=== PATIENT | male | born 1970 | race Caucasian/White ===

== ENCOUNTER → 2020-09-16 | Outpatient (CLI) | payer OTHER ==
--- NOTE | 2020-09-17 07:50 | CT ---
EXAMINATION TYPE: CT angio head neck DATE OF EXAM: 09/16/2020 HISTORY: Dizziness and giddiness COMPARISON: None CT DLP: 719 mGycm. Automated Exposure Control for Dose Reduction was Utilized. TECHNIQUE: CTA scan of the neck is performed without and with IV Contrast, patient injected with 65 mL of Isovue 370, axial images are obtained, coronal and sagittal reformatted images are reviewed. Th ree-D reconstructed images are created on an independent workstation and reviewed. Source images are reviewed. FINDINGS: Carotid/Vascular Structures: There is a three-vessel arch. Common carotid arteries bifurcate normally into internal and external carotid arteries. No significant stenosis is evident. Internal carotid ar teries have a tortuous course near the skull base. No significant stenosis is evident. Vertebral kirill lola were not included. Cervical of [place]: Vertebral basilar system appears normal. Posterior cerebral vasculature is unrema rkable. Internal carotid arteries bifurcate normally into A1 and M1 segments. A2 segments are normal. The anterior communicating artery is identified. Posterior communicating arteries are not identified . IMPRESSION: 1. No flow-limiting stenosis bilateral carotid bifurcations. 2. Normal yocha dehe of [place]
== END | disposition home or self-care (01) ==
LOC: RADCTMAIN 07:47
PROVIDERS: ATTEND Family Medicine
DX: R42 Dizziness and giddiness (principal)
CPT/HCPCS: 70496; 70498; Q9967

== ENCOUNTER → 2022-07-12 | Outpatient (CLI) | payer OTHER ==
--- NOTE | 2022-07-12 14:53 | XR ---
EXAMINATION TYPE: XR shoulder complete RT DATE OF EXAM: 07/12/2022 COMPARISON: NONE HISTORY: Pain TECHNIQUE: Shoulder examined in 3 projections. FINDINGS: The humeral head articulates with the glenoid. The acromio-clavicular junction is normal. No acute fractures or dislocations are evident. A follow up study can be performed 7-10 days from acute trauma for continued pain. MRI can be perfor med if soft tissue evaluation would be of benefit. IMPRESSION: 1. No acute osseous shoulder abnormality.
== END | disposition home or self-care (01) ==
LOC: RADXRMAIN 14:10
PROVIDERS: ATTEND Family Medicine
DX: M24.811 Other specific joint derangements of right shoulder, not elsewhere classified (principal)

== ENCOUNTER → 2022-11-15 | Outpatient (CLI) | payer OTHER ==
--- NOTE | 2022-11-15 15:53 | XR ---
EXAMINATION TYPE: XR chest 2V DATE OF EXAM: 11/15/2022 3:48 PM COMPARISON: None TECHNIQUE: XR chest 2V Frontal and lateral views of the chest. CLINICAL INDICATION:Male, 51 years old with history of J44.9; FINDINGS: Lungs/Pleura: There is no evidence of pleural effusion, focal consolidation, or pneumothorax. Pulmonary vascularity: Unremarkable. Heart/mediastinum: Cardiomediastinal silhouette is unremarkable. Musculoskeletal: No acute osseous pathology. Partial visualization of cervical fusion however. IMPRESSION: No acute cardiopulmonary disease/process.
[2022-11-15 21:13] LABS: ALT 53 U/L (10-49); AST 39 U/L (14-35); Albumin 4.6 d/dL (3.8-4.9); Albumin/Globulin Ratio 1.53 Ratio (1.60-3.17); Alkaline Phosphatase 65 U/L (41-126); BUN/Creat Ratio 20.12 Ratio (12.00-20.00); Blood Urea Nitrogen 16.1 mg/dL (9.0-27.0); Calcium 9.8 mg/dL (8.7-10.3); Carbon Dioxide 24.1 mmol/L (21.6-31.8); Chloride 100 mmol/L (96-109); Glucose 166 mg/dL (70-110); Potassium 3.4 mmol/L (3.5-5.5); Sodium 138 mmol/L (135-145); Total Bilirubin 0.4 mg/dL (0.3-1.2); Total Protein 7.6 d/dL (6.2-8.2)
== END | disposition home or self-care (01) ==
LOC: LABWHC1 14:51
PROVIDERS: ATTEND Surgery Plastic and Reconstructive Surgery
DX: I11.9 Hypertensive heart disease without heart failure (principal); E11.65 Type 2 diabetes mellitus with hyperglycemia; J44.9 Chronic obstructive pulmonary disease, unspecified; R94.31 Abnormal electrocardiogram [ECG] [EKG]
CPT/HCPCS: 36415; 71046; 80053; 83036; 93005

== ENCOUNTER → 2022-11-22 | Outpatient (CLI) | payer OTHER ==
[2022-11-22 17:11] LABS: HGB 14.3 d/dL (13.0-17.0); MCH 30.4 pg (27.0-32.0); MCHC 34.9 d/dL (32.0-37.0); Mean Platelet Volume 10.7 FL (9.5-12.2); NRBC Per 100 WBC 0 X 10*3/uL (0.00-0.01); Platelet Count 246 X 10*3/uL (140-440); RBC 4.71 X 10*6/uL (4.40-5.60); RDW 11.1 % (11.5-14.5); WBC 6.42 X 10*3/uL (4.50-10.00)
== END | disposition home or self-care (01) ==
LOC: LABWHC1 12:48
PROVIDERS: ATTEND Surgery Plastic and Reconstructive Surgery
DX: E11.65 Type 2 diabetes mellitus with hyperglycemia (principal)
CPT/HCPCS: 36415; 85027

== ENCOUNTER 2023-02-08 12:02 | Day surgery (SDC) | payer OTHER ==
[2023-02-05 14:41] VITALS: BMI 35.6
[~2023-02-08 12:02] MED LIST: ACETAMINOPHEN TAB 500 MG TAB PO PRN; DEXAMETHASONE SOD PHOSPHATE 4 MG/ML 1 ML VIAL IV ONE; HEPARIN SODIUM,PORCINE/PF 5,000 UNIT/0.5 ML SYRINGE SQ PRN; HYDROmorphone 0.5 MG/0.5 ML SYRINGE IVP PRN; LACTATED RINGERS 1,000 ML IV SCH; MELOXICAM 7.5 MG TAB PO PRN; ONDANSETRON 4 MG/2 ML VIAL IVP ONE; ONDANSETRON 4 MG/2 ML VIAL IVP PRN; ceFAZolin 3 GM in SODIUM CHLORIDE 0.9% 100 ML IVPB PRN
[2023-02-08] MEDS ORDERED: LACTATED RINGERS 1,000 ML IV ONE ×2 (12:27→14:46)
[2023-02-08 12:42] LABS: Glucose,Whole Blood 181 mg/dL (70-110)
[2023-02-08] MEDS ORDERED: ONDANSETRON 4 MG/2 ML VIAL IVP ONE (12:54)
[2023-02-08 12:55] LABS: Basophils % (A) 1 %; Eosinophils # (A) 0.2 k/uL (0-0.7); Eosinophils % (A) 3 %; HCT 41.7 % (39.0-53.0); HGB 15.1 gm/dL (13.0-17.5); Lymphocytes # (A) 1.6 k/uL (1.0-4.8); Lymphocytes % (A) 28 %; MCH 31.1 pg (25.0-35.0); MCHC 36.2 g/dL (31.0-37.0); MCV 85.8 fL (80.0-100.0); Monocytes # (A) 0.3 k/uL (0-1.0); Monocytes % (A) 5 %; Neutrophils # (A) 3.6 k/uL (1.3-7.7); Neutrophils % (A) 62 %; Platelet Count 190 k/uL (150-450); RBC 4.86 m/uL (4.30-5.90); RDW 12.2 % (11.5-15.5); WBC 5.8 k/uL (3.8-10.6)
[2023-02-08] MEDS ORDERED: MIDAZOLAM 2 MG/2 ML VIAL IVP ONE (12:56)
[2023-02-08 13:12] LABS: ALT 59 U/L (4-49); AST 51 U/L (17-59); African American GFR (CKD) >90 (>60 ml/min/1.73 sqM); Albumin 4.4 g/dL (3.5-5.0); Alkaline Phosphatase 71 U/L (38-126); Anion Gap 11 mmol/L; Blood Urea Nitrogen 13 mg/dL (9-20); Calcium 9.1 mg/dL (8.4-10.2); Carbon Dioxide 27 mmol/L (22-30); Chloride 98 mmol/L (98-107); Glucose 171 mg/dL (74-99); Non-African American GFR(CKD) >90 (>60 ml/min/1.73 sqM); Potassium 3.3 mmol/L (3.5-5.1); Sodium 136 mmol/L (137-145); Total Bilirubin 0.7 mg/dL (0.2-1.3); Total Protein 7.7 g/dL (6.3-8.2)
[2023-02-08] MEDS ORDERED: ACETAMINOPHEN TAB 500 MG TAB PO STA (13:19)
[2023-02-08] MEDS ORDERED: TAMSULOSIN 0.4 MG CAP.ER.24H PO STA (13:19)
--- NOTE | 2023-02-08 13:19 | P.GSHP ---
History of Present Illness H&P Date: 02/08/23 CHIEF COMPLAINT: Inguinal hernia, bilateral HISTORY OF PRESENT ILLNESS: The patient is a 52-year-old male who presents with a history of swelling and pain along the both groins. Now he presents for repair of his inguinal hernia. PAST MEDICAL HISTORY: Please see list. PAST SURGICAL HISTORY: Please see list. MEDICATIONS: Please see list. ALLERGIES: Please see list. SOCIAL HISTORY: No illicit drug use FAMILY HISTORY: No reports of Crohn disease or ulcerative colitis. REVIEW OF ORGAN SYSTEMS: CONSTITUTIONAL: No reports of fevers or chills. No reports of weight loss despite prior attempts. GI: Denies any blood in stools or constipation. PHYSICAL EXAM: VITAL SIGNS: Stable GENERAL: Well-developed pleasant male in no acute distress. HEENT: No scleral icterus. Extraocular movements grossly intact. Moist buccal mucosa. NECK: Supple without lymphadenopathy. CHEST: Unlabored respirations. Equal bilateral excursions. CARDIOVASCULAR: Regular rate and rhythm. Distal 2+ pulses. ABDOMEN: Soft, nondistended. No peritoneal signs. Palpable defect of the bilateral groin. MUSCULOSKELETAL: No clubbing, cyanosis, or edema. ASSESSMENT: 1. Inguinal hernia, bilateral PLAN: 1. Recommend proceeding with a robotic inguinal repair with mesh with bilateral approach. 2. Benefits and risks of surgical intervention was discussed including possibility of open technique. 3. DVT prophylaxis. 4. Antibiotic prophylaxis. 5. Patient's elevated risk for recurrence with pre-existing BMI of 35 Past Medical History Past Medical History: Diabetes Mellitus, Hyperlipidemia, Hypertension History of Any Multi-Drug Resistant Organisms: None Reported Past Surgical History: Back Surgery, Orthopedic Surgery Additional Past Surgical History / Comment(s): cervical discectomy, spinal fusion, bunionectomy Past Anesthesia/Blood Transfusion Reactions: Previous Problems w/ Anesthesia Additional Past Anesthesia/Blood Transfusion Reaction / Comment(s): no problems with prior surgeries however, an inguinal hernia repair was attempted at the [facility] in [place] and he woke up during the surgery and was having difficulty osvaldo thing. He wasn't told what caused the issue but pt states he was told he just had a reaction to the anesthesia. The surgery was aborted and the pt was referred here to Dr Rosales. Past Psychological History: No Psychological Hx Reported Smoking Status: Vaper Past Alcohol Use History: Daily, Heavy Additional Past Alcohol Use History / Comment(s): pt drinks a 5th of alcohol a day Past Drug Use History: None Reported - Past Family History Mother Additional Family Medical History / Comment(s): bypass surgery Father Additional Family Medical History / Comment(s): bypass surgery Medications and Allergies Home Medications Medication Instructions Recorded Confirmed Type Cholecalciferol [Vitamin D3 (25 25 mcg PO DAILY 02/05/23 02/08/23 History Mcg = 1000 Iu)] Potassium Chloride [Klor-Con M20] 20 meq PO DAILY 02/05/23 02/08/23 History Rosuvastatin [Crestor] 0.5 tab PO DAILY 02/05/23 02/08/23 History amLODIPine 10 mg PO DAILY 02/05/23 02/08/23 History hydroCHLOROthiazide [Hydrodiuril] 50 mg PO DAILY 02/05/23 02/08/23 History metFORMIN HCL [metFORMIN HCL ER 1,000 mg PO BID 02/05/23 02/08/23 History Osmotic] Allergies Allergy/AdvReac Type Severity Reaction Status Date / Time No Known Allergies Allergy Verified 02/08/23 12:44 Surgical - Exam Vital Signs Temp Pulse Resp BP Pulse Ox 97.6 F 82 16 136/90 97 02/08/23 12:26 02/08/23 12:26 02/08/23 12:26 02/08/23 12:26 02/08/23 12:26 Results - Labs 02/08/23 12:40 02/08/23 12:40 Abnormal Lab Results - Last 24 Hours (Table) 02/08/23 02/08/23 Range/Units 12:40 12:41 Sodium 136 L (137-145) mmol/L Potassium 3.3 L (3.5-5.1) mmol/L Creatinine 0.63 L (0.66-1.25) mg/dL Glucose 171 H (74-99) mg/dL POC Glucose (mg/dL) 181 H (70-110) mg/dL ALT 59 H (4-49) U/L Diabetes panel 02/08/23 Range/Units 12:40 Sodium 136 L (137-145) mmol/L Potassium 3.3 L (3.5-5.1) mmol/L Chloride 98 (98-107) mmol/L Carbon Dioxide 27 (22-30) mmol/L BUN 13 (9-20) mg/dL Creatinine 0.63 L (0.66-1.25) mg/dL Glucose 171 H (74-99) mg/dL Calcium 9.1 (8.4-10.2) mg/dL AST 51 (17-59) U/L ALT 59 H (4-49) U/L Alkaline Phosphatase 71 (38-126) U/L Total Protein 7.7 (6.3-8.2) g/dL Albumin 4.4 (3.5-5.0) g/dL Calcium panel 02/08/23 Range/Units 12:40 Calcium 9.1 (8.4-10.2) mg/dL Albumin 4.4 (3.5-5.0) g/dL Pituitary panel 02/08/23 Range/Units 12:40 Sodium 136 L (137-145) mmol/L Potassium 3.3 L (3.5-5.1) mmol/L Chloride 98 (98-107) mmol/L Carbon Dioxide 27 (22-30) mmol/L BUN 13 (9-20) mg/dL Creatinine 0.63 L (0.66-1.25) mg/dL Glucose 171 H (74-99) mg/dL Calcium 9.1 (8.4-10.2) mg/dL Adrenal panel 02/08/23 Range/Units 12:40 Sodium 136 L (137-145) mmol/L Potassium 3.3 L (3.5-5.1) mmol/L Chloride 98 (98-107) mmol/L Carbon Dioxide 27 (22-30) mmol/L BUN 13 (9-20) mg/dL Creatinine 0.63 L (0.66-1.25) mg/dL Glucose 171 H (74-99) mg/dL Calcium 9.1 (8.4-10.2) mg/dL Total Bilirubin 0.7 (0.2-1.3) mg/dL AST 51 (17-59) U/L ALT 59 H (4-49) U/L Alkaline Phosphatase 71 (38-126) U/L Total Protein 7.7 (6.3-8.2) g/dL Albumin 4.4 (3.5-5.0) g/dL
[2023-02-08 13:34] LABS: INR 0.9 (<1.2); Partial Thromboplastin Time 22.5 sec (22.0-30.0); Prothrombin Time 10.4 sec (10.0-12.5)
[2023-02-08] MEDS ORDERED: fentaNYL (PF) 50 MCG/ML 2 ML AMP ONE (13:38)
[2023-02-08] MEDS ORDERED: DEXAMETHASONE SOD PHOSPHATE 4 MG/ML 1 ML VIAL ONE (13:38)
[2023-02-08] MEDS ORDERED: PROPOFOL 10 MG/ML 20 ML VIAL IV ONE (13:38)
[2023-02-08] MEDS ORDERED: SUCCINYLCHOLINE CHLORIDE 200 MG/10 ML VIAL IV ONE (13:38)
[2023-02-08] MEDS ORDERED: MIDAZOLAM 2 MG/2 ML VIAL ONE (13:38)
[2023-02-08] MEDS ORDERED: ALBUTEROL HFA INHALER INHALATION ONE (13:38)
[2023-02-08] MEDS ORDERED: KETAMINE HCL IN 0.9 % NACL 50 MG/5 ML SYRINGE ONE (13:38)
[2023-02-08] MEDS ORDERED: LIDOCAINE 1% INJ 10MG/ML (20 ML MDV) ONE (13:38)
[2023-02-08] MEDS ORDERED: GLYCOPYRROLATE 0.2 MG/ML 2 ML VIAL ONE (13:38)
[2023-02-08] MEDS ORDERED: ROPIVACAINE 5 MG/ML 30 ML VIAL ONE (13:38)
[2023-02-08] MEDS ORDERED: ROCURONIUM 10 MG/ML (5 ML VIAL) IV ONE (13:38)
[2023-02-08] MEDS ORDERED: NEOSTIGMINE 1 MG/ML 10 ML VIAL ONE (13:38)
[2023-02-08] MEDS ORDERED: LIDOCAINE 1%-EPI 1:100,000 50 ML VIAL SQ ONE ×3 (14:08→14:16)
[2023-02-08 15:09] LABS: Glucose,Whole Blood 252 mg/dL (70-110)
--- NOTE | 2023-02-08 15:11 | P.OP ---
Date of Procedure: 02/08/23 Description of Procedure: SURGEON: MARIA G ROSALES MD PREOPERATIVE DIAGNOSES: 1. Initial right inguinal hernia 2. Morbid obesity due to excess calories, BMI 35.4 3. Hyperlipidemia 4. Hypertensive heart disease 5. Diabetes type 2, [id number] POSTOPERATIVE DIAGNOSES: 1. Initial right inguinal hernia 2. Morbid obesity due to excess calories, BMI 35.4 3. Hyperlipidemia 4. Hypertensive heart disease 5. Diabetes type 2, [id number] OPERATION: 1. Robotic-assisted da Ernesto Xi laparoscopic right groin exploration/inguinal hernia repair approach ANESTHESIA: General with local anesthetic ESTIMATED BLOOD LOSS: 5 mL. SPECIMENS REMOVED: None COMPLICATIONS: None. FINDINGS: 1. No hernia along the left groin. 2. Questionable fatty inguinal lipoma along the right groin with right groin exploration performed. 3. No further anomalies identified for cause of pain. 4. Case deemed right groin exploration. INDICATIONS: The patient is a 52-year-old gentleman who presents with history of right groin pain. Laparoscopic versus open and robotic approaches were discussed. Benefits and risks including bleeding, infection, injury to the vas deferens as well as sterility and chronic groin pain were reviewed. Placement of mesh was also described. Informed consent was obtained. DESCRIPTION: In the preoperative area, the patient was marked with indelible marker along the inguinal hernia. The patient was brought to the operating room and initially laid in supine position. The abdomen had been prepped and draped in standard sterile fashion. Ioban draping was also placed. Prior to incision, a timeout protocol was confirmed with surgical team regarding patient's name including procedures to be performed and location along the right groin. Initial positioning for the robotic assisted ports were selected whereby 20 cm superior to the target anatomy, 0 degree 5 mm laparoscopic trocar entry was performed at the left upper quadrant. The abdomen was insufflated to 15 mmHg which he had tolerated well. Diagnostic laparoscopy was without presence of indirect or direct inguinal hernia of the bilateral groin. Next, along the epigastrium, 8 mm robot trocar was placed. An 8-mm robotic trocar was placed under direct visualization at the right upper quadrant. An 8 mm port was placed at the left upper quadrant. All trocars were positioned between 8 to 10-cm apart from each other. An accessory trocar was placed on the left lateral abdominal wall 12 mm. The Da Ern[employer] XI robot was primed, draped, prepared for docking along the right side of the patient. The patient was placed in Trendelenberg position 21-degrees. I then went to the Pongr Xi console. The sales support assistant was at bedside for exchange of the robot arms and equipment. No hernia was identified along the left groin. Fullness along the right groin was identified for possible inguinal lipoma. The peritoneum was scored over the right groin for exploration of the right groin. Dissection along the inguinal canals performed without any large inguinal lipoma. The peritoneum and incision were closed using nonabsorbable 2-0 V LOC similar to hernia repair approach without mesh Using a nonabsorbable 2-0 VLOC, was used to oversew the pocket of the right groin/hernia. Mesh was avoided. The robot was undocked from the patient's bedside. I then rescrubbed into the case. Insufflation was released from the abdominal cavity and all instruments were removed from the abdominal cavity. The rest of incisions were reapproximated using 4-0 Monocryl in a running subcuticular fashion. Incisions were cleansed using dilute hydrogen peroxide. Liquid glue was applied to the skin. At the end of the procedure, the needle, sponge and instrument counts had been verified correct by the surgical scrub tech. The patient had tolerated the procedure well and was taken to the postanesthesia care unit in stable condition. Plan - Discharge Summary Discharge Rx Participant: No New Discharge Prescriptions: New Simethicone [Gas-X] 125 mg PO AC-TID PRN #20 capsule PRN Reason: Pain Ibuprofen [Motrin] 600 mg PO Q8HR PRN #30 tab PRN Reason: Pain Continue hydroCHLOROthiazide [Hydrodiuril] 50 mg PO DAILY amLODIPine 10 mg PO DAILY Rosuvastatin [Crestor] 0.5 tab PO DAILY Potassium Chloride [Klor-Con M20] 20 meq PO DAILY metFORMIN HCL [metFORMIN HCL ER Osmotic] 1,000 mg PO BID Cholecalciferol [Vitamin D3 (25 Mcg = 1000 Iu)] 25 mcg PO DAILY Discharge Medication List Cholecalciferol [Vitamin D3 (25 Mcg = 1000 Iu)] 25 mcg PO DAILY 02/05/23 [History] Potassium Chloride [Klor-Con M20] 20 meq PO DAILY 02/05/23 [History] Rosuvastatin [Crestor] 0.5 tab PO DAILY 02/05/23 [History] amLODIPine 10 mg PO DAILY 02/05/23 [History] hydroCHLOROthiazide [Hydrodiuril] 50 mg PO DAILY 02/05/23 [History] metFORMIN HCL [metFORMIN HCL ER Osmotic] 1,000 mg PO BID 02/05/23 [History] Ibuprofen [Motrin] 600 mg PO Q8HR PRN #30 tab 02/08/23 [Rx] Simethicone [Gas-X] 125 mg PO AC-TID PRN #20 capsule 02/08/23 [Rx] Follow up Appointment(s)/Referral(s): Maria G Rosales MD [STAFF PHYSICIAN] - 02/13/23 3:00 pm Patient Instructions/Handouts: *[facility] - Managing Your Pain After Surgery Without Opioids, *[facility] - (Anesthesia) Discharge Instructions Outpatient Surgery, Exploratory Laparoscopy (DC) Activity/Diet/Wound Care/Special Instructions: No lifting over 10 pounds in 2 weeks until Feb 22August shower. No bath tub soaks for two weeks until Feb 22 Diet as tolerated. Use simethicone and ibuprofen or Aleve scheduled for the next 24-48 hours for best pain relief. Use ice along incisions for today to prevent swelling. Discharge Disposition: HOME SELF-CARE
[2023-02-08 15:24] VITALS: TEMP 98
[2023-02-08] MEDS ORDERED: INSULIN ASPART (NovoLOG) 100 UNIT/ML VIAL SQ ONE (15:25)
[2023-02-08 16:26] LABS: Glucose,Whole Blood 295 mg/dL (70-110)
[2023-02-08 17:41] VITALS: BP 126/83; PULSE 99; RESP 18
--- NOTE | 2023-02-09 06:46 | P.ANPRN ---
Procedure Note - Anesthesia - Nerve Block Performed Bilateral Transversus Abdominis Single Time Out Performed: Yes Date of Procedure: 02/08/23 Procedure Start Time: 12:55 Procedure Stop Time: 12:59 Location of Patient: PreOp Indication: Acute Post-Operative Pain, Requested by Surgeon Sedation Type: Sedate with meaningful contact maintained Preparation: Sterile Prep Position: Supine Needle Types: Pajunk Needle Gauge: 21 Ultrasound used to visualize needle placement: Yes Ultrasound used to observe medication spread: Yes Blood Aspirated: No Pain Paresthesia on Injection Noted: No Resistance on Injection: Normal Image Stored and Saved: Yes Events: Uneventful and Well Tolerated (ropi .5% 20cc plus dexamethasone 4mg given bilaterally)
== END 2023-02-08 17:05 | disposition home or self-care (01) ==
LOC: OR 12:02
PROVIDERS: ATTEND Surgery Plastic and Reconstructive Surgery
DX: K40.90 Unilateral inguinal hernia, without obstruction or gangrene, not specified as recurrent (principal); E78.5 Hyperlipidemia, unspecified; E11.9 Type 2 diabetes mellitus without complications; E66.01 Morbid (severe) obesity due to excess calories; I11.9 Hypertensive heart disease without heart failure; F10.90 Alcohol use, unspecified, uncomplicated; F17.290 Nicotine dependence, other tobacco product, uncomplicated; Z79.84 Long term (current) use of oral hypoglycemic drugs; Z79.899 Other long term (current) drug therapy; Z68.35 Body mass index [BMI] 35.0-35.9, adult
CPT/HCPCS: 49650; S2900; 64488; 80053; 85025; 85610; 85730